=== PATIENT | male | born 1950 | race African-American/Black ===

== ENCOUNTER 2019-08-23 09:09 | Inpatient (IN) ==
[2019-08-23 09:57] LABS: Basophils % 0.5 % (0.0-0.8); Eosinophils # 0.1 10*3/uL (0.0-0.87); Eosinophils % 2.4 % (0.00-10.9); Immature Granulocytes % 0.2 %; Immature Granulocytes Absolute 0.01 #; Lymphocytes # 1.6 10*3/uL (1.4-4.0); Lymphocytes % 26.6 % (21.2-54.2); Mean Corpuscular HGB Conc 32.6 GM/DL (32-36); Mean Corpuscular Volume 90.7 FL (87-102); Monocytes % 7.9 % (1.7-12.7); Neutrophils % 62.4 % (38.7-73.9); Platelet Count 137 T/CUMM (130-400); Red Blood Count 4.74 MC/CUMM (3.8-5.5); Red Cell Distribution Width 13.2 % (9.3-17.3); White Blood Count 5.8 T/CUMM (4-12)
[2019-08-23 10:24] LABS: Apearance,Urine CLEAR (Clear); Bilirubin,Urine Negative (Negative); Blood, Urine Small mg/dL (Negative); Glucose,Urine (UA) Negative (Negative); Ketones,Urine Negative (Negative); Mucus,Urine Occasional /LPF (Occasional); Nitrite,Urine Negative (Negative); Protein,Urine Negative; RBC,Urine 1 /HPF (0-4); Urine Color Yellow (Yellow); Urine Specific Gravity 1.015 (1.001-1.035); Urine Urobilinogen < 2.0 EU/DL (0.2-1.0)
[2019-08-23 10:31] LABS: Alanine Aminotransferase 55 U/L (16-61); Albumin 4.1 G/DL (3.4-5.0); Alkaline Phosphatase 90 U/L (45-117); Aspartate Amino Transferase 32 U/L (0-37); Blood Urea Nitrogen 17 MG/DL (7-18); Calcium 8.9 MG/DL (8.5-10.1); Estimated Glom Filtration Rate 82 ML/MIN; Glucose 109 MG/DL (74-106); Osmolality,Calculated 277.7 MOS/KG (273-304); Total Protein 7.6 G/DL (6.4-8.3); Troponin I < 0.015 NG/ML (0.00-0.045)
[2019-08-23 10:37] LABS: Barbiturates Screen,Urine Negative (Negative); Benzodiazepines Screen,Urine Negative (Negative); Cannabinoid Screen,Urine Negative (Negative); Opiate Screen,Urine Negative (Negative); Phencyclidine Screen,Urine Negative (Negative)
[2019-08-23 11:12] LABS: INR 1.2; PT Patient Result 13.2 SECS (9.6-12.2); Partial Thromboplastin Time 28.2 SECS (20.8-36.0)
[2019-08-23] MEDS ORDERED: ACETAMINOPHEN 325 MG TABLET PO PRN (11:21)
[2019-08-23] MEDS ORDERED: PROMETHAZINE 25 MG/1 ML VIAL IM PRN (11:21)
[2019-08-23] MEDS ORDERED: DEXTROSE 50% 25 GM/50 ML VIAL IV PRN (11:21)
[2019-08-23] MEDS ORDERED: ONDANSETRON 4 MG/2 ML VIAL IV PRN (11:21)
[2019-08-23] MEDS ORDERED: GLUCAGON 1 MG VIAL IM PRN (11:21)
[2019-08-23] MEDS ORDERED: HEPARIN 5,000 UNIT/1 ML VIAL IV ONE (11:25)
[2019-08-23 11:51] LABS: Risk Ratio 3.65; Thyroid Stimulating Hormone 1.43 uIU/ml (0.358-3.74)
[2019-08-23] MEDS: PANTOPRAZOLE 40 MG TABLET PO SCH (12:56)
[2019-08-23] MEDS: WARFARIN 5 MG TABLET PO ONE ×2 (12:56→13:28)
[2019-08-23] MEDS: INSULIN REGULAR 100 UNIT/ML SUBCUT SCH ×3 (12:57→20:17)
[2019-08-23] MEDS: HEPARIN DRIP 25,000 UNITS/500 ML PREMIX IV SCH (15:40)
[2019-08-23] MEDS: WARFARIN 5 MG TABLET PO SCH (17:00)
[2019-08-23] MEDS ORDERED: ENOXAPARIN 40 MG/0.4 ML SYRINGE SUBCUT SCH (21:00)
[2019-08-23] MEDS ORDERED: SIMVASTATIN 20 MG TABLET PO SCH (21:00)
[2019-08-23] MEDS: ASPIRIN EC 81 MG TABLET PO SCH (22:05)
[2019-08-23] MEDS: metFORMIN 500 MG TABLET PO SCH (22:06)
[2019-08-23] MEDS: MELATONIN 3 MG TABLET PO PRN (22:06)
[2019-08-23] MEDS: ROSUVASTATIN 20 MG TABLET PO SCH (22:06)
[2019-08-24 03:45] LABS: Basophils % 0.7 % (0.0-0.8); Eosinophils # 0.2 10*3/uL (0.0-0.87); Eosinophils % 3.2 % (0.00-10.9); Hemoglobin 13.9 GM/DL (14.0-18.0); Immature Granulocytes % 0.2 %; Immature Granulocytes Absolute 0.01 #; Lymphocytes # 1.9 10*3/uL (1.4-4.0); Lymphocytes % 31.5 % (21.2-54.2); Mean Corpuscular HGB Conc 32.3 GM/DL (32-36); Mean Corpuscular Volume 90.9 FL (87-102); Mean Platelet Volume 12.5 FL (9.6-12.0); Monocytes % 8.2 % (1.7-12.7); Neutrophils % 56.2 % (38.7-73.9); Platelet Count 137 T/CUMM (130-400); Red Blood Count 4.73 MC/CUMM (3.8-5.5); Red Cell Distribution Width 13.2 % (9.3-17.3)
[2019-08-24 04:18] LABS: Bilirubin,Total 0.6 MG/DL (0.2-1.0); Calcium 8.9 MG/DL (8.5-10.1); Osmolality,Calculated 283.4 MOS/KG (273-304); Total Protein 7.2 G/DL (6.4-8.3)
[2019-08-24] MEDS: INSULIN REGULAR 100 UNIT/ML SUBCUT SCH ×4 (08:00→20:09)
[2019-08-24 08:05] LABS: INR 1.2; PT Patient Result 12.8 SECS (9.6-12.2)
[2019-08-24] MEDS: PANTOPRAZOLE 40 MG TABLET PO SCH (08:48)
[2019-08-24] MEDS: LOSARTAN 25 MG TABLET PO SCH (08:48)
[2019-08-24] MEDS: amLODIPine 10 MG TABLET PO SCH (08:48)
[2019-08-24] MEDS: ACETAMINOPHEN 500 MG TABLET PO SCH (08:48)
[2019-08-24] MEDS: COENZYME Q10 100 MG CAPSULE PO SCH (08:48)
[2019-08-24] MEDS: ASPIRIN EC 81 MG TABLET PO SCH (08:50)
[2019-08-24] MEDS: metFORMIN 500 MG TABLET PO SCH ×2 (08:50→21:57)
[2019-08-24] MEDS ORDERED: WARFARIN 5 MG TABLET PO ONE (08:53)
[2019-08-24] MEDS: HEPARIN DRIP 25,000 UNITS/500 ML PREMIX IV SCH (11:25)
[2019-08-24] MEDS ORDERED: WARFARIN 5 MG TABLET PO SCH (18:00)
[2019-08-24] MEDS: MELATONIN 3 MG TABLET PO PRN (21:56)
[2019-08-24] MEDS: ROSUVASTATIN 20 MG TABLET PO SCH (21:57)
[2019-08-25 04:25] LABS: Basophils % 0.6 % (0.0-0.8); Eosinophils # 0.2 10*3/uL (0.0-0.87); Eosinophils % 2.9 % (0.00-10.9); Hematocrit 43.7 VOL% (42.0-52.0); Hemoglobin 14.1 GM/DL (14.0-18.0); Immature Granulocytes % 0.2 %; Immature Granulocytes Absolute 0.01 #; Lymphocytes # 1.9 10*3/uL (1.4-4.0); Lymphocytes % 30.4 % (21.2-54.2); Mean Corpuscular HGB Conc 32.3 GM/DL (32-36); Mean Corpuscular Volume 91.2 FL (87-102); Mean Platelet Volume 11.7 FL (9.6-12.0); Monocytes % 8.1 % (1.7-12.7); Neutrophils % 57.8 % (38.7-73.9); Platelet Count 129 T/CUMM (130-400); Red Blood Count 4.79 MC/CUMM (3.8-5.5); Red Cell Distribution Width 13.2 % (9.3-17.3); White Blood Count 6.3 T/CUMM (4-12)
[2019-08-25 04:38] LABS: Calcium 9.1 MG/DL (8.5-10.1); Osmolality,Calculated 280.5 MOS/KG (273-304)
[2019-08-25 04:42] LABS: INR 1.3
[2019-08-25] MEDS: HEPARIN DRIP 25,000 UNITS/500 ML PREMIX IV SCH (06:08)
[2019-08-25] MEDS: metFORMIN 500 MG TABLET PO SCH ×2 (08:46→21:09)
[2019-08-25] MEDS: PANTOPRAZOLE 40 MG TABLET PO SCH (08:46)
[2019-08-25] MEDS: ASPIRIN EC 81 MG TABLET PO SCH (08:46)
[2019-08-25] MEDS: ACETAMINOPHEN 500 MG TABLET PO SCH (08:47)
[2019-08-25] MEDS: amLODIPine 10 MG TABLET PO SCH (08:47)
[2019-08-25] MEDS: LOSARTAN 25 MG TABLET PO SCH (08:47)
[2019-08-25] MEDS: COENZYME Q10 100 MG CAPSULE PO SCH (10:35)
[2019-08-25] MEDS: INSULIN REGULAR 100 UNIT/ML SUBCUT SCH ×4 (10:41→21:12)
[2019-08-25] MEDS ORDERED: WARFARIN 7.5 MG TABLET PO SCH (18:00)
[2019-08-25] MEDS: WARFARIN 7.5 MG TABLET PO SCH (18:22)
[2019-08-25] MEDS: ROSUVASTATIN 20 MG TABLET PO SCH (21:09)
[2019-08-25] MEDS: MELATONIN 3 MG TABLET PO PRN (21:15)
[2019-08-26 01:00] LABS: Basophils % 0.3 % (0.0-0.8); Eosinophils # 0.1 10*3/uL (0.0-0.87); Eosinophils % 2.2 % (0.00-10.9); Hematocrit 41.5 VOL% (42.0-52.0); Hemoglobin 13.6 GM/DL (14.0-18.0); Immature Granulocytes % 0.3 %; Immature Granulocytes Absolute 0.02 #; Lymphocytes # 1.8 10*3/uL (1.4-4.0); Lymphocytes % 28.5 % (21.2-54.2); Mean Corpuscular HGB Conc 32.8 GM/DL (32-36); Mean Corpuscular Volume 90.2 FL (87-102); Mean Platelet Volume 12.2 FL (9.6-12.0); Monocytes % 8.9 % (1.7-12.7); Neutrophils % 59.8 % (38.7-73.9); Platelet Count 132 T/CUMM (130-400); Red Cell Distribution Width 13.2 % (9.3-17.3); White Blood Count 6.3 T/CUMM (4-12)
[2019-08-26 01:15] LABS: INR 1.5; PT Patient Result 16.4 SECS (9.6-12.2)
[2019-08-26 01:19] LABS: Calcium 9.2 MG/DL (8.5-10.1); Osmolality,Calculated 279.5 MOS/KG (273-304)
[2019-08-26] MEDS: HEPARIN DRIP 25,000 UNITS/500 ML PREMIX IV SCH ×2 (02:51→19:47)
[2019-08-26] MEDS: COENZYME Q10 100 MG CAPSULE PO SCH (08:43)
[2019-08-26] MEDS: metFORMIN 500 MG TABLET PO SCH ×2 (08:44→21:24)
[2019-08-26] MEDS: ASPIRIN EC 81 MG TABLET PO SCH (08:44)
[2019-08-26] MEDS: amLODIPine 10 MG TABLET PO SCH (08:44)
[2019-08-26] MEDS: PANTOPRAZOLE 40 MG TABLET PO SCH (08:45)
[2019-08-26] MEDS: LOSARTAN 25 MG TABLET PO SCH (08:45)
[2019-08-26] MEDS: ACETAMINOPHEN 500 MG TABLET PO SCH (08:46)
[2019-08-26] MEDS: INSULIN REGULAR 100 UNIT/ML SUBCUT SCH ×4 (09:01→21:24)
[2019-08-26] MEDS: WARFARIN 5 MG TABLET PO SCH (18:43)
[2019-08-26] MEDS: ROSUVASTATIN 20 MG TABLET PO SCH (21:24)
[2019-08-26] MEDS: MELATONIN 3 MG TABLET PO PRN (21:24)
[2019-08-27 02:36] LABS: Basophils % 0.5 % (0.0-0.8); Eosinophils # 0.2 10*3/uL (0.0-0.87); Eosinophils % 2.9 % (0.00-10.9); Hematocrit 42.5 VOL% (42.0-52.0); Hemoglobin 13.7 GM/DL (14.0-18.0); Immature Granulocytes % 0.2 %; Immature Granulocytes Absolute 0.01 #; Lymphocytes # 1.7 10*3/uL (1.4-4.0); Lymphocytes % 28.5 % (21.2-54.2); Mean Corpuscular HGB Conc 32.2 GM/DL (32-36); Mean Corpuscular Volume 90.8 FL (87-102); Mean Platelet Volume 12.2 FL (9.6-12.0); Monocytes % 8.9 % (1.7-12.7); Platelet Count 129 T/CUMM (130-400); Red Blood Count 4.68 MC/CUMM (3.8-5.5); Red Cell Distribution Width 13.3 % (9.3-17.3); White Blood Count 5.8 T/CUMM (4-12)
[2019-08-27 02:42] LABS: INR 1.5; PT Patient Result 16.6 SECS (9.6-12.2)
[2019-08-27 02:53] LABS: Calcium 8.8 MG/DL (8.5-10.1); Osmolality,Calculated 281.5 MOS/KG (273-304)
[2019-08-27] MEDS: INSULIN REGULAR 100 UNIT/ML SUBCUT SCH ×4 (09:10→20:27)
[2019-08-27] MEDS: amLODIPine 10 MG TABLET PO SCH (09:16)
[2019-08-27] MEDS: metFORMIN 500 MG TABLET PO SCH ×2 (09:16→20:24)
[2019-08-27] MEDS: ACETAMINOPHEN 500 MG TABLET PO SCH (09:16)
[2019-08-27] MEDS: COENZYME Q10 100 MG CAPSULE PO SCH (09:16)
[2019-08-27] MEDS: ASPIRIN EC 81 MG TABLET PO SCH (09:16)
[2019-08-27] MEDS: LOSARTAN 25 MG TABLET PO SCH (09:17)
[2019-08-27] MEDS: PANTOPRAZOLE 40 MG TABLET PO SCH (09:17)
[2019-08-27] MEDS: WARFARIN 7.5 MG TABLET PO SCH (16:59)
[2019-08-27] MEDS: HEPARIN DRIP 25,000 UNITS/500 ML PREMIX IV SCH (18:28)
[2019-08-27] MEDS: ROSUVASTATIN 20 MG TABLET PO SCH (20:24)
[2019-08-27] MEDS: MELATONIN 3 MG TABLET PO PRN (20:26)
[2019-08-28 04:37] LABS: Basophils % 0.5 % (0.0-0.8); Eosinophils # 0.2 10*3/uL (0.0-0.87); Eosinophils % 2.5 % (0.00-10.9); Hematocrit 40.3 VOL% (42.0-52.0); Immature Granulocytes % 0.3 %; Immature Granulocytes Absolute 0.02 #; Lymphocytes # 1.4 10*3/uL (1.4-4.0); Lymphocytes % 22.9 % (21.2-54.2); Mean Corpuscular HGB Conc 32.3 GM/DL (32-36); Mean Corpuscular Volume 90.8 FL (87-102); Mean Platelet Volume 12.1 FL (9.6-12.0); Monocytes % 9.3 % (1.7-12.7); Neutrophils % 64.5 % (38.7-73.9); Platelet Count 128 T/CUMM (130-400); Red Blood Count 4.44 MC/CUMM (3.8-5.5); Red Cell Distribution Width 13.4 % (9.3-17.3); White Blood Count 5.9 T/CUMM (4-12)
[2019-08-28 04:41] LABS: INR 1.6; PT Patient Result 16.8 SECS (9.6-12.2)
[2019-08-28 04:47] LABS: Calcium 9.1 MG/DL (8.5-10.1); Osmolality,Calculated 284.4 MOS/KG (273-304)
[2019-08-28] MEDS: INSULIN REGULAR 100 UNIT/ML SUBCUT SCH ×4 (07:36→20:33)
[2019-08-28] MEDS: metFORMIN 500 MG TABLET PO SCH ×2 (08:22→20:30)
[2019-08-28] MEDS: ASPIRIN EC 81 MG TABLET PO SCH (08:22)
[2019-08-28] MEDS: COENZYME Q10 100 MG CAPSULE PO SCH (08:22)
[2019-08-28] MEDS: PANTOPRAZOLE 40 MG TABLET PO SCH (08:23)
[2019-08-28] MEDS: LOSARTAN 25 MG TABLET PO SCH (08:23)
[2019-08-28] MEDS: amLODIPine 10 MG TABLET PO SCH (08:23)
[2019-08-28] MEDS: ACETAMINOPHEN 500 MG TABLET PO SCH (08:23)
[2019-08-28] MEDS: HEPARIN DRIP 25,000 UNITS/500 ML PREMIX IV SCH (15:27)
[2019-08-28] MEDS: WARFARIN 5 MG TABLET PO SCH (17:31)
[2019-08-28] MEDS: ZALEPLON 5 MG CAPSULE PO PRN (20:30)
[2019-08-28] MEDS: ROSUVASTATIN 20 MG TABLET PO SCH (20:30)
[2019-08-29 05:49] LABS: Basophils % 0.5 % (0.0-0.8); Eosinophils # 0.1 10*3/uL (0.0-0.87); Eosinophils % 2.3 % (0.00-10.9); Hemoglobin 13.4 GM/DL (14.0-18.0); Immature Granulocytes % 0.2 %; Immature Granulocytes Absolute 0.01 #; Lymphocytes # 1.7 10*3/uL (1.4-4.0); Lymphocytes % 27.5 % (21.2-54.2); Mean Corpuscular HGB Conc 32.7 GM/DL (32-36); Mean Corpuscular Volume 90.5 FL (87-102); Mean Platelet Volume 12.3 FL (9.6-12.0); Monocytes % 8.6 % (1.7-12.7); Neutrophils % 60.9 % (38.7-73.9); Platelet Count 128 T/CUMM (130-400); Red Blood Count 4.53 MC/CUMM (3.8-5.5); Red Cell Distribution Width 13.2 % (9.3-17.3); White Blood Count 6.1 T/CUMM (4-12)
[2019-08-29 06:03] LABS: INR 1.6; PT Patient Result 17.4 SECS (9.6-12.2)
[2019-08-29 06:05] LABS: Calcium 8.9 MG/DL (8.5-10.1); Osmolality,Calculated 279.5 MOS/KG (273-304)
[2019-08-29 06:33] LABS: Eosinophils 2 % (0-10); Lymphocytes 32 % (20-55); Segmented Neutrophils 65 % (50-85); Total Cells Counted 100
[2019-08-29 06:34] LABS: Atypical Lymphocytes Few; Hypochromasia 1+; Microcytosis Slight
[2019-08-29 06:35] LABS: Platelet Estimate Adequate
[2019-08-29] MEDS: INSULIN REGULAR 100 UNIT/ML SUBCUT SCH ×3 (08:22→21:00)
[2019-08-29] MEDS: ACETAMINOPHEN 500 MG TABLET PO SCH (08:31)
[2019-08-29] MEDS: metFORMIN 500 MG TABLET PO SCH ×2 (08:32→20:00)
[2019-08-29] MEDS: LOSARTAN 25 MG TABLET PO SCH (08:32)
[2019-08-29] MEDS: COENZYME Q10 100 MG CAPSULE PO SCH (08:32)
[2019-08-29] MEDS: ASPIRIN EC 81 MG TABLET PO SCH (08:33)
[2019-08-29] MEDS: PANTOPRAZOLE 40 MG TABLET PO SCH (08:33)
[2019-08-29] MEDS: amLODIPine 10 MG TABLET PO SCH (08:33)
[2019-08-29] MEDS: HEPARIN DRIP 25,000 UNITS/500 ML PREMIX IV SCH (16:05)
[2019-08-29] MEDS ORDERED: WARFARIN 7.5 MG TABLET PO SCH (18:00)
[2019-08-29] MEDS: MELATONIN 3 MG TABLET PO PRN (20:00)
[2019-08-29] MEDS: ZALEPLON 5 MG CAPSULE PO PRN (20:00)
[2019-08-29] MEDS: ROSUVASTATIN 20 MG TABLET PO SCH (20:00)
[2019-08-30 05:01] LABS: INR 1.6; PT Patient Result 16.8 SECS (9.6-12.2)
[2019-08-30] MEDS: INSULIN REGULAR 100 UNIT/ML SUBCUT SCH ×3 (08:09→15:37)
[2019-08-30] MEDS: amLODIPine 10 MG TABLET PO SCH (09:44)
[2019-08-30] MEDS: metFORMIN 500 MG TABLET PO SCH ×2 (09:45→20:39)
[2019-08-30] MEDS: COENZYME Q10 100 MG CAPSULE PO SCH (09:45)
[2019-08-30] MEDS: ASPIRIN EC 81 MG TABLET PO SCH (09:46)
[2019-08-30] MEDS: ACETAMINOPHEN 500 MG TABLET PO SCH (09:46)
[2019-08-30] MEDS: PANTOPRAZOLE 40 MG TABLET PO SCH (09:46)
[2019-08-30] MEDS: LOSARTAN 25 MG TABLET PO SCH (09:46)
[2019-08-30] MEDS: HEPARIN DRIP 25,000 UNITS/500 ML PREMIX IV SCH (11:25)
[2019-08-30] MEDS: WARFARIN 10 MG TABLET PO SCH (18:49)
[2019-08-30] MEDS: ZALEPLON 5 MG CAPSULE PO PRN (20:39)
[2019-08-30] MEDS: ROSUVASTATIN 20 MG TABLET PO SCH (20:39)
[2019-08-30] MEDS: MELATONIN 3 MG TABLET PO PRN (20:39)
[2019-08-31] MEDS: INSULIN REGULAR 100 UNIT/ML SUBCUT SCH ×4 (03:13→16:09)
[2019-08-31 06:05] LABS: INR 1.7; PT Patient Result 17.9 SECS (9.6-12.2)
[2019-08-31] MEDS: ACETAMINOPHEN 500 MG TABLET PO SCH (08:31)
[2019-08-31] MEDS: metFORMIN 500 MG TABLET PO SCH ×2 (08:31→20:38)
[2019-08-31] MEDS: COENZYME Q10 100 MG CAPSULE PO SCH (08:31)
[2019-08-31] MEDS: ASPIRIN EC 81 MG TABLET PO SCH (08:31)
[2019-08-31] MEDS: amLODIPine 10 MG TABLET PO SCH (08:31)
[2019-08-31] MEDS: PANTOPRAZOLE 40 MG TABLET PO SCH (08:31)
[2019-08-31] MEDS: LOSARTAN 25 MG TABLET PO SCH (08:31)
[2019-08-31] MEDS: HEPARIN DRIP 25,000 UNITS/500 ML PREMIX IV SCH ×2 (09:34→11:22)
[2019-08-31] MEDS: WARFARIN 10 MG TABLET PO SCH (17:32)
[2019-08-31] MEDS: ZALEPLON 5 MG CAPSULE PO PRN (20:39)
[2019-08-31] MEDS: ROSUVASTATIN 20 MG TABLET PO SCH (20:39)
[2019-08-31] MEDS: MELATONIN 3 MG TABLET PO PRN (20:39)
[2019-09-01] MEDS: INSULIN REGULAR 100 UNIT/ML SUBCUT SCH ×5 (02:21→21:09)
[2019-09-01 05:56] LABS: INR 1.9; PT Patient Result 20.4 SECS (9.6-12.2)
[2019-09-01] MEDS: metFORMIN 500 MG TABLET PO SCH ×2 (09:30→21:07)
[2019-09-01] MEDS: ASPIRIN EC 81 MG TABLET PO SCH (09:30)
[2019-09-01] MEDS: PANTOPRAZOLE 40 MG TABLET PO SCH (09:30)
[2019-09-01] MEDS: COENZYME Q10 100 MG CAPSULE PO SCH (09:31)
[2019-09-01] MEDS: ACETAMINOPHEN 500 MG TABLET PO SCH (09:31)
[2019-09-01] MEDS: LOSARTAN 25 MG TABLET PO SCH (09:31)
[2019-09-01] MEDS: amLODIPine 10 MG TABLET PO SCH (09:31)
[2019-09-01] MEDS: HEPARIN DRIP 25,000 UNITS/500 ML PREMIX IV SCH ×2 (09:45→11:58)
[2019-09-01] MEDS ORDERED: WARFARIN 2.5 MG TABLET PO ONE ×2 (10:52→11:50)
[2019-09-01] MEDS: WARFARIN 10 MG TABLET PO SCH (19:17)
[2019-09-01] MEDS: ROSUVASTATIN 20 MG TABLET PO SCH (21:07)
[2019-09-01] MEDS: MELATONIN 3 MG TABLET PO PRN (21:08)
[2019-09-02 04:41] LABS: Basophils # 0.1 10*3/uL (0.0-0.2); Basophils % 0.7 % (0.0-0.8); Eosinophils # 0.2 10*3/uL (0.0-0.87); Eosinophils % 2.2 % (0.00-10.9); Hemoglobin 13.5 GM/DL (14.0-18.0); Immature Granulocytes % 0.1 %; Immature Granulocytes Absolute 0.01 #; Lymphocytes # 2.1 10*3/uL (1.4-4.0); Lymphocytes % 31.4 % (21.2-54.2); Mean Corpuscular HGB Conc 32.1 GM/DL (32-36); Mean Corpuscular Volume 90.5 FL (87-102); Monocytes % 7.4 % (1.7-12.7); Neutrophils % 58.2 % (38.7-73.9); Platelet Count 139 T/CUMM (130-400); Red Blood Count 4.64 MC/CUMM (3.8-5.5); Red Cell Distribution Width 13.2 % (9.3-17.3); White Blood Count 6.8 T/CUMM (4-12)
[2019-09-02 04:49] LABS: PT Patient Result 21.4 SECS (9.6-12.2)
[2019-09-02 05:20] LABS: Calcium 9.3 MG/DL (8.5-10.1); Osmolality,Calculated 283.4 MOS/KG (273-304)
[2019-09-02 07:32] VITALS: BP 151/75
[2019-09-02] MEDS: COENZYME Q10 100 MG CAPSULE PO SCH (08:51)
[2019-09-02] MEDS: ASPIRIN EC 81 MG TABLET PO SCH (08:51)
[2019-09-02] MEDS: LOSARTAN 25 MG TABLET PO SCH (08:52)
[2019-09-02] MEDS ORDERED: WARFARIN 2.5 MG TABLET PO ONE (08:52)
[2019-09-02] MEDS: metFORMIN 500 MG TABLET PO SCH (08:52)
[2019-09-02] MEDS: PANTOPRAZOLE 40 MG TABLET PO SCH (08:53)
[2019-09-02] MEDS: amLODIPine 10 MG TABLET PO SCH (08:53)
[2019-09-02] MEDS: ACETAMINOPHEN 500 MG TABLET PO SCH (08:53)
[2019-09-02] MEDS: INSULIN REGULAR 100 UNIT/ML SUBCUT SCH (09:59)
== END 2019-09-02 11:09 | disposition home or self-care (01) | DRG 66 ==
LOC: N.EDINP 09:09 → N.ED 09:09 → N.4E 11:37 → SUPCPDRO 08-24 13:18 → SUATTDRO 08-24 13:18
PROVIDERS: ADMIT Internal Medicine; ATTEND Emergency Medicine